=== PATIENT | female | born 1995 | race Caucasian/White ===

== ENCOUNTER → 2017-01-23 | Outpatient (CLI) | payer OTHER ==
--- NOTE | 2017-01-23 15:19 | Diagnostic Imaging Report ---
PROCEDURE: US Thyroid. TECHNIQUE: Multiple real-time grayscale images were obtained of the thyroid in various projections. Indication: Followup left thyroid nodule. Comparison: 08/11/2016. Discussion: The thyroid gland remains diffusely heterogenous and borderline enlarged. The right thyroid measures 5.1 x 1.9 x 1.5 cm. Left thyroid measures 5.4 x 1.8 x 1.5 cm. 7 mm likely cystic nodule within the mid left thyroid gland shows no adverse interval change. Nodule is likely benign though recommend one-year sonographic followup to document stability. No new nodule identified. No suspicious microcalcifications or abnormal color Doppler blood flow. No abnormal adjacent lymph nodes identified. Impression: 1. Cystic appearing subcentimeter left thyroid nodule is likely benign though recommend one-year sonographic followup to document stability. 2. Heterogenous appearing thyroid gland is likely due to underlying thyroiditis. Dictated by: Dictated on workstation # [id number]
== END ==
LOC: RAD 14:39
PROVIDERS: ATTEND Nurse Practitioner Primary Care
DX: E04.1 Nontoxic single thyroid nodule (principal)
CPT/HCPCS: 76536